=== PATIENT | female | born 1945 | race Caucasian/White ===

== ENCOUNTER 2024-05-27 13:23 | Outpatient (AMB) | payer MEDICARE, SELFPAY ==
[2024-05-27 13:38] VITALS: BP 112/73; PULSE 75; RESP 18; TEMP 35.8; O2SAT 98; BMI 20.9
--- NOTE | 2024-05-27 13:38 | ORTHONT_ITS ---
Vital signs 05/27/24 13:38 Height 1.57 m Height Method Stated Weight 51.766 kg Weight Measurement Method Standing Scale BMI 20.9 BP 112/73 Blood Pressure Source Automatic Cuff Blood Pressure Location Right Upper Arm Position Sitting Respiration 18 Pulse 75 Pulse Source Monitor Temp 96.4 F L Temp Source Temporal Artery Scan Pulse Oximetry (%) 98 Oxygen Delivery Method Room Air Med/Allergies Allergies & Medications Allergies No Known Allergies Allergy (Mild, Uncoded 05/27/24 13:39) NKA Medication Reconciliation No Known Home Medications 05/20/24 [History Confirmed 05/27/24] Subjective Visit Visit for: follow up visit and x-rays Immunization / Flu Flu Vaccine in the Last 12 Months: Yes Flu Vaccine Exclusion Criteria: Already Received History of Present Illness Chief complaint: F/U KNEE CYST Maria G is a pleasant 78-year-old female who presents today for evaluation of her right knee. She has a ganglion cyst on the anterior aspect of her knee. We drained the knee cyst approximately 3 days ago and the cyst is actually came back. We discussed that I did warn her that the there is a high risk of recurrence but we did not expect to come back this soon. Personal History Occupation: RETIRED Red flag PMH: none Pain Pain level (0-10): 0 Pain duration: NONE Pain location: inside (medial) Associated signs & symptoms: none Ambulatory data Ambulatory device: none Treatments Improvement with previous injections: No Improvement with PT: No Improvement with NSAIDS: no Review of Systems Review of Systems: All systems negative unless otherwise noted in HPI. Exam Exam Patient is in no acute distress and is cooperative with the examination today. Breathing is nonlabored. Patient has a normal mood and affect. The patient has a gait that is [nonantalgic] Bilateral extremities were evaluated and demonstrates sensation intact to light touch. Palpable pedal pulses are present. No significant edema is present. Bilateral hips were examined. The patient has no pain with log roll of the hips. Internal rotation to 30 degrees and external rotation to 30 degrees is painless. Negative FADIR. Left knee was examined today. The left knee is in reasonable alignment. Range of motion from 0-120 degrees. Knee is stable to varus and valgus as well as AP translation with <5mm. Patient has a negative McMurrays. There is no pain with patellofemoral compression and no crepitus noted. The knee is nontender to palpation. The right knee was also examined. The right knee is in [neutral] alignment. Range of motion from [0-120] degrees. Knee is stable to varus and valgus as well as AP translation with <5mm. Patient has a [negative] McMurrays. There is [no] pain with patellofemoral compression and [no] crepitus noted. The knee is [nontender] to palpation [diffusely]. There is a 2 x 2 cm cyst that is perfectly spherical. It feels like it is fluid-filled. It is on the inferior aspect of her patella X-rays demonstrate mild to moderate arthritis of the right knee. Assessment and Plan Problem List (1) Knee joint cyst, right: Status: Acute Plan: 78-year-old female with a right knee ganglion cyst on the anterior aspect of her knee. We discussed nonoperative treatment. We discussed we could try an aspiration with a cortisone injection. We made no promises and stated that this is not bad again. We also discussed that the comparison recurrence again with open treatment. An 18-gauge needle was used and we aspirated her cyst. 4 cc of fluid has been obtained monitor that was serosanguineous. We then inserted 5 cc of lidocaine and Kenalog mixture to 1 of 4-year-old show. The patient tolerated this well Advanced Care Planning Discussion Advance care planning discussed with:: patient Office Procedures GNS Level of Care Nursing/Assessment Patient Status: Established Patient Nursing Assessment/Reassesment: Medication Reconciliation, Update PMH in EMR and Vital Signs Coordination of Care: Complex Care and Chronic Disease 1-5, Education Complex Pt/Fam, Consent,records obtained, informed consent and Staff clarify orders Established Patient Charge Established Patient Point Assignment: 90 Established Patient Point Charge: EP Level 3 (80-115) Surgical Proc/IM SQ injection Major Surgical Procedure: Yes (KNEE INJECTION ) Medication Given Medication Given Medication Given: Yes Documented Dose Given: 4 Route: Infiitration Medication Given Medication Given Medication Given: Yes Documented Dose Given: 1 Route: Infiitration Office Meds Xylocaine 10 mg/mL (1 %) injection solution Performing Provider: Baltazar Barfield MD Performing Location: [facility] Administered by: Baltzaar Barfield MD on 05/27/24 14:25 Dose Route Admin Location Dispensed Lot Number Expiration Date [employer] Floor Press Operator 20 mL Infiltration 20 mL [id number] [employer] triamcinolone acetonide 40 mg/mL suspension for injection Performing Provider: Baltazar Barfield MD Performing Location: [facility] Administered by: Baltazar Barfield MD on 05/27/24 14:25 Dose Route Admin Location Dispensed Lot Number Expiration Date [facility] Floor Press Operator 40 mg intra-articular 1 mL [id number] [employer] Past Medical History Past Medical History Have you ever been diagnosed with any of the following: Respiratory Problems Smoking: No Smoking Cessation Counseling: No Smoking Exposure: No
== END 2024-05-27 14:08 | disposition home or self-care (01) ==
LOC: HODSRG 13:23
PROVIDERS: Supervising Provider Orthopaedic Surgery Adult Reconstructive Orthopaedic Surgery; Visit Provider Orthopaedic Surgery Adult Reconstructive Orthopaedic Surgery
DX: M67.461 Ganglion, right knee (principal)
CPT/HCPCS: 20610; 99213; J3301; J3490; G0463

== ENCOUNTER 2024-06-17 13:44 | Outpatient (AMB) | payer MEDICARE, SELFPAY ==
[2024-06-17 14:02] VITALS: BP 129/72; PULSE 72; RESP 18; TEMP 36.1; O2SAT 95; BMI 21.2
--- NOTE | 2024-06-17 14:02 | PD.ORTHCLVIS ---
Vital signs 06/17/24 14:02 Height 1.57 m Height Method Stated Weight 52.418 kg Weight Measurement Method Standing Scale BMI 21.2 BP 129/72 Blood Pressure Source Automatic Cuff Blood Pressure Location Right Upper Arm Position Sitting Respiration 18 Pulse 72 Pulse Source Monitor Temp 96.9 F Temp Source Temporal Artery Scan Pulse Oximetry (%) 95 Oxygen Delivery Method Room Air Med/Allergies Allergies & Medications Allergies No Known Allergies Allergy (Mild, Uncoded 06/17/24 14:03) NKA Medication Reconciliation No Known Home Medications 05/20/24 [History Confirmed 06/17/24] Subjective Visit Visit for: follow up visit Immunization / Flu Flu Vaccine in the Last 12 Months: No Flu Vaccine Exclusion Criteria: No Exclusion Criteria History of Present Illness Chief complaint: CYST REMOVAL Personal History Occupation: RETIRED [employer] PMH: none Pain Pain level (0-10): 3 Pain duration: CONSTANT Pain location: anterior Pain quality: dull and aching Ambulatory data Ambulatory device: none Treatments Improvement with previous injections: No Improvement with PT: No Improvement with NSAIDS: n/a Review of Systems Review of Systems: All systems negative unless otherwise noted in HPI. Assessment and Plan Advanced Care Planning Discussion Advance care planning discussed with:: patient Office Procedures GNS Level of Care Nursing/Assessment Patient Status: Established Patient Nursing Assessment/Reassesment: Medication Reconciliation, Update PMH in EMR and Vital Signs Coordination of Care: Complex Care and Chronic Disease 1-5, Education Complex Pt/Fam, Consent,records obtained, informed consent, 1 Ins Authorization, Results/Orders obtained and Staff clarify orders Established Patient Charge Established Patient Point Assignment: 110 Established Patient Point Charge: EP Level 3 (80-115) Past Medical History Past Medical History Have you ever been diagnosed with any of the following: Respiratory Problems Smoking: No Smoking Cessation Counseling: No Smoking Exposure: No
--- NOTE | 2024-06-17 14:08 | PD.ORTHCLVIS ---
Vital signs 06/17/24 14:02 Height 1.57 m Height Method Stated Weight 52.418 kg Weight Measurement Method Standing Scale BMI 21.2 BP 129/72 Blood Pressure Source Automatic Cuff Blood Pressure Location Right Upper Arm Position Sitting Respiration 18 Pulse 72 Pulse Source Monitor Temp 96.9 F Temp Source Temporal Artery Scan Pulse Oximetry (%) 95 Oxygen Delivery Method Room Air Med/Allergies Allergies & Medications Allergies No Known Allergies Allergy (Mild, Uncoded 06/17/24 14:03) NKA Medication Reconciliation No Known Home Medications 05/20/24 [History Confirmed 06/17/24] Subjective Visit Visit for: follow up visit Immunization / Flu Flu Vaccine in the Last 12 Months: No Flu Vaccine Exclusion Criteria: No Exclusion Criteria History of Present Illness Chief complaint: CYST REMOVAL Patient is a pleasant 78-year-old female with a right knee ganglion cyst on the anterior aspect of her knee. We have aspirated previously and it recurred. We did let her know advanced this is a high recurrence rate with aspiration even a high recurrence rate surgically. She reports that it is painful and that it is a nuisance. She hates when he her long pants rub on it. She would like to get this removed. Personal History Occupation: RETIRED Red flag PMH: none Pain Pain level (0-10): 3 Pain duration: CONSTANT Pain location: anterior Pain quality: dull and aching Ambulatory data Ambulatory device: none Treatments Improvement with previous injections: No Improvement with PT: No Improvement with NSAIDS: n/a Review of Systems Review of Systems: All systems negative unless otherwise noted in HPI. Exam Exam Patient is in no acute distress and is cooperative with the examination today. Breathing is nonlabored. Patient has a normal mood and affect. The patient has a gait that is [nonantalgic] Bilateral extremities were evaluated and demonstrates sensation intact to light touch. Palpable pedal pulses are present. No significant edema is present. Bilateral hips were examined. The patient has no pain with log roll of the hips. Internal rotation to 30 degrees and external rotation to 30 degrees is painless. Negative FADIR. Left knee was examined today. The left knee is in reasonable alignment. Range of motion from 0-120 degrees. Knee is stable to varus and valgus as well as AP translation with <5mm. Patient has a negative McMurrays. There is no pain with patellofemoral compression and no crepitus noted. The knee is nontender to palpation. The right knee was also examined. The right knee is in [neutral] alignment. Range of motion from [0-120] degrees. Knee is stable to varus and valgus as well as AP translation with <5mm. Patient has a [negative] McMurrays. There is [no] pain with patellofemoral compression and [no] crepitus noted. The knee is [nontender] to palpation [diffusely]. There is a 2 x 2 cm cyst that is perfectly spherical. It feels like it is fluid-filled. It is on the inferior aspect of her patella X-rays demonstrate mild to moderate arthritis of the right knee. Assessment and Plan Problem List (1) Knee joint cyst, right: Status: Acute Plan: Patient is a 78-year-old female with a very large 3 x 3 cm cyst over the right knee. It is superficial. We have aspirated previously and it was gelatinous. This was consistent with a synovial cyst. We have aspirated and is reoccurred. I discussed with the patient that this has a high recurrence rate with both aspiration and surgery. The pain is affecting her quality life and she understands that there Is as high as a 40% recurrence rate. I discussed that the risks of the procedure include infection, and most commonly recurrence of the lesion. She would like to proceed with surgery despite these risks given that is very difficult for her to wear long pants. Plan We will plan for surgical removal. We Will send it for pathology as well. We were very clear with the patient that this has a high recurrence rate. Advanced Care Planning Discussion Advance care planning discussed with:: patient Office Procedures GNS Level of Care Nursing/Assessment Patient Status: Established Patient Nursing Assessment/Reassesment: Medication Reconciliation, Update PMH in EMR and Vital Signs Coordination of Care: Complex Care and Chronic Disease 1-5, Education Complex Pt/Fam, Consent,records obtained, informed consent, 1 Ins Authorization, Results/Orders obtained and Staff clarify orders Established Patient Charge Established Patient Point Assignment: 110 Established Patient Point Charge: EP Level 3 (80-115) Past Medical History Past Medical History Have you ever been diagnosed with any of the following: Respiratory Problems Smoking: No Smoking Cessation Counseling: No Smoking Exposure: No
[2024-06-17 14:11] VITALS: BP 129/72; PULSE 72; RESP 18; TEMP 36.1; O2SAT 95
== END 2024-06-17 14:19 | disposition home or self-care (01) ==
LOC: HODSRG 13:44
PROVIDERS: PCP Family Medicine; Referring Provider Family Medicine; Supervising Provider Orthopaedic Surgery Adult Reconstructive Orthopaedic Surgery; Visit Provider Orthopaedic Surgery Adult Reconstructive Orthopaedic Surgery
DX: M25.861 Other specified joint disorders, right knee (principal)
CPT/HCPCS: 99213; G0463

== ENCOUNTER 2024-07-09 08:30 | Day surgery (SDC) | payer MEDICARE, SELFPAY ==
--- NOTE | 2024-07-08 09:00 | EKG_ITS ---
[facility] Test Date: 2024-07-08 Pat Name: RAY CANTU Department: Room: - Gender: Female It Applications Developer: CRISS : [id number] Requested By: Arthur Cheek Order Number: [id number] Reading MD: Arthur Cheek Measurements Intervals [place] Rate: 64 P: 64 MD: 154 QRS: -25 QRSD: 86 T: 38 QT: 383 QTc: 398 Interpretive Statements SINUS RHYTHM BORDERLINE LEFT AXIS DEVIATION POSSIBLE RIGHT VENTRICULAR CONDUCTION DELAY MINIMAL VOLTAGE CRITERIA FOR LVH, CONSIDER NORMAL VARIANT No previous ECG available for comparison /[id number]/[id number]
[2024-07-08 09:31] VITALS: BMI 21.4
[2024-07-08 10:26] LABS: Basophils % (Auto) 1 % (0-2.5); Eosinophils # (Auto) 0.2 Thou/mm3 (0.0-0.5); Eosinophils % (Auto) 3 % (0-10); Hematocrit 40.7 % (36.0-46.0); Immature Granulocytes % (Auto) 0 % (0-0); Immature Granulocytes Auto 0.01 Thou/mm3 (0.00-0.00); Lymphocytes # (Auto) 1.6 Thou/mm3 (1.0-4.8); Lymphocytes % (Auto) 27 % (10-50); Mean Corpuscular HGB Conc 31.9 g/dl (31.0-37.0); Mean Corpuscular Hemoglobin 28.8 pg (25.0-35.0); Mean Corpuscular Volume 90 fL (80-100); Monocytes # (Auto) 0.6 Thou/mm3 (0.0-0.8); Monocytes % (Auto) 9 % (0-12); Neutrophils # (Auto) 3.8 Thou/mm3 (1.8-7.7); Neutrophils % (Auto) 61 % (37-80); Nucleated Red Blood Cell % 0 /100 WBC (0); Platelet Count 199 Thou/mm3 (140-440); Red Blood Count 4.52 Miln/mm3 (4.00-5.20); White Blood Count 6.2 Thou/mm3 (3.6-11.0)
[2024-07-08 10:28] LABS: Partial Thromboplastin Time 25.1 Seconds (22.0-36.0); Prothrombin Time 10.5 Seconds (9.0-12.2)
[2024-07-08 10:40] LABS: Alanine Aminotransferase 15 U/L (10-49); Albumin, Serum 4.6 gm/dL (3.4-4.8); Albumin/Globulin Ratio 2.2 (1.2-2.2); Alkaline Phosphatase 83 U/L (46-116); Anion Gap 6 (7-16); BUN/Creatinine Ratio 16 Ratio (12-20); Bilirubin,Total 0.4 mg/dL (0.3-1.2); Blood Urea Nitrogen 14 mg/dL (9-23); Calcium 9.7 mg/dL (8.3-10.6); Calcium (Corrected) 9.7 mg/dL (8.5-10.1); Carbon Dioxide 29.7 mMol/L (20.0-31.0); Chloride 105 mMol/L (98-107); Creatinine (Component) 0.9 mg/dL (0.6-1.3); Estimated Creatinine Clearance 41.4 mL/min (>60); Globulin 2.1 gm/dL (2.3-3.5); Glucose 77 mg/dL (74-106); Osmolality,Calculated 280 (275-295); Potassium 4.4 mMol/L (3.4-5.1); Sodium 141 mMol/L (136-145); Total Protein 6.7 gm/dL (5.7-8.2); eGFR > 60 See Note
[2024-07-08 11:14] LABS: Aspartate Amino Transferase 21 U/L (0-34)
[2024-07-09] VITALS (8 sets, daily range): BP systolic 108–137; BP diastolic 60–72; PULSE 60–66; RESP 12–25; TEMP 36.3–36.7; O2SAT 96–99; BMI 21.4
[2024-07-09] MEDS: ACETAMINOPHEN 325 MG TABLET 650 MG PO (10:36)
--- NOTE | 2024-07-09 13:56 | PD.SUROPNT ---
Date of Procedure 07/09/24 Pre Op Diagnosis Right anterior knee mass Post Op Diagnosis Right knee ganglion Procedure Right knee ganglion mass removal Findings 2 x 2 cm ganglion cyst that is encapsulated Procedure Description Indications: Patient is a 78-year-old female with persistent knee pain and discomfort with anterior knee mass. We previously aspirated and aspirated gelatinous substance. It has reoccurred several times and we thus discussed removal. A sideways consent was placed in the chart. The patient understands that the base risk include infection as well as recurrence of the mass Procedure in detail: The patient was prepped and draped in the usual sterile fashion. A tourniquet was used and inflated. A 3 cm incision was made over the mass. We dissected around the anterior knee mass that appeared gelatinous. We did not puncture it was able to remove it in 1 piece using dissecting scissors and a Bovie. We sent the specimen for pathology. We found a 2 x 2 x 1 cm mass that appeared to look like a gelatinous cyst. It was mobile and superficial to the patella. The patient was subsequently closed with 0 Vicryl, 2-0 Vicryl, and Monocryl. We achieved hemostasis prior to closing. A sterile dressing was then applied Anesthesia MAC Pathology / specimen None Pathology comment: right knee mass Estimated Blood Loss 150 Condition Stable Disposition same day Surgeon Baltazar Barfield MD Surgical Staff Operation Date: 07/09/24 13:45 <No data on this case meets the specified criteria>
--- NOTE | 2024-07-09 13:58 | SUR.PHASEI ---
pt received from OR in recovery bay 4. pt awake and alert, breathing unlabored on room air. v/s stable. pt dressing to right lower extremity cdi. report received from Dr. Cheek and Yary ROSAS.
--- NOTE | 2024-07-09 14:25 | SUR.PHASEI ---
pt able to tolerate oral fluids without difficulty swallowing or nausea/vomiting.
--- NOTE | 2024-07-09 15:30 | SUR.PHASEII ---
pt awake and alert, breathing unlabored on room air. v/s stable. pt dressing to right knee cdi. pt able to ambulate to wheelchair with steady gait. d/c instructions given with Elan in room, all question answered. pt d/c via wheelchair with all belongings.
== END 2024-07-09 15:30 | disposition home or self-care (01) ==
PROVIDERS: Anesthesiology; PCP Family Medicine; Referring Provider Orthopaedic Surgery Adult Reconstructive Orthopaedic Surgery; Visit Provider Orthopaedic Surgery Adult Reconstructive Orthopaedic Surgery
PROC: (CPT 27345; principal; 2024-07-09 13:30)
DX: M67.461 Ganglion, right knee (principal); Z01.810 Encounter for preprocedural cardiovascular examination
CPT/HCPCS: 27345; 36415; 80048; 80053; 85025; 85610; 85730; 93005; A4649; J0690; J2250; J2405; J2704; J3010; J3490; A9270

== ENCOUNTER 2024-07-22 09:00 | Outpatient (AMB) | payer MEDICARE, SELFPAY ==
[2024-07-22 09:23] VITALS: BP 146/82; PULSE 66; RESP 18; TEMP 36.3; O2SAT 98; BMI 21.5
--- NOTE | 2024-07-22 09:23 | PD.ORTHCLVIS ---
Vital signs 07/22/24 09:23 Height 1.57 m Height Method Stated Weight 53.184 kg Weight Measurement Method Standing Scale BMI 21.5 BP 146/82 H Blood Pressure Source Automatic Cuff Blood Pressure Location Right Upper Arm Position Sitting Respiration 18 Pulse 66 Pulse Source Monitor Temp 97.4 F Temp Source Temporal Artery Scan Pulse Oximetry (%) 98 Oxygen Delivery Method Room Air Med/Allergies Allergies & Medications Allergies No Known Allergies Allergy (Verified 07/22/24 09:27) Medication Reconciliation hydrocodone 5 mg-acetaminophen 325 mg tablet 1 tab PO Q6H PRN pain #10 tabs 07/09/24 [Rx Confirmed 07/22/24] Exam Exam Patient is in no acute distress and is cooperative with the examination today. Breathing is nonlabored. In no respiratory distress. Bilateral extremities were evaluated and demonstrates sensation intact to light touch. Palpable pedal pulses are present. No significant edema is present. Bilateral hips were examined. The patient has no pain with log roll of the hips. Internal rotation to 30 degrees and external rotation to 30 degrees is painless. Negative FADIR. Left knee was examined today. The right knee is in reasonable alignment. Range of motion from 0-120 degrees. Knee is stable to varus and valgus as well as AP translation with <5mm. Patient has a negative McMurrays. There is no pain with patellofemoral compression and no crepitus noted. The knee is nontender to palpation. Right knee incision is clean dry and intact. Incision is clean and there is no mass currently Assessment and Plan Problem List (1) Knee joint cyst, right: Status: Acute Plan: Patient is a 71-year-old female status post right knee cyst removal. She is very happy with how it looks. She is doing well. He reports that she can see us as an as-needed basis is a looks great Advanced Care Planning Discussion Advance care planning discussed with:: patient Office Procedures GNS Level of Care Nursing/Assessment Patient Status: Established Patient Nursing Assessment/Reassesment: Medication Reconciliation, Orthostatic Vitals and Vital Signs Coordination of Care: Complex Care and Chronic Disease 1-5, Education Complex Pt/Fam, Consent,records obtained, informed consent, Results/Orders obtained and [facility] Established Patient Charge Established Patient Point Assignment: 95 Established Patient Point Charge: EP Level 3 (80-115) MA Intake Visit Data Collection New Patient or Established: Established Patient (seen at [facility] within 3 years) Reason for Visit:: Follow up Sx Reimbursement Auditor Required: No PCP or OBGYN visit in last 3 months: Yes Hx Now: No Do You Feel Safe at Home: Yes Authorities Contacted: N/A Questionairres Past Medical History Past Medical History Have you ever been diagnosed with any of the following: Neurological Problems Seizures: No Cardiology Problems Congestive Heart Failure: No Respiratory Problems Chronic Obstructive Pulmonary Disease (COPD): No Smoking: No Smoking Cessation Counseling: No Smoking Exposure: No Stomache/Intestinal Problems Hepatitis: No Genital/Urinary Problems Renal Disease: No Reproductive Problems Previous Pregnancies: Yes (X2) Endocrine Problems Diabetes Mellitus Type 1: No Diabetes Mellitus Type 2: No Other Problems Falls: No Blood Transfusions: No Blood Transfusion Reaction: No Anesthesia Reactions: No Chicken Pox: Yes Measles: Yes Mumps: Yes Cancer: No Subjective Visit Visit for: follow up visit and knee Immunization / Flu Flu Vaccine in the Last 12 Months: Yes Flu Vaccine Exclusion Criteria: No Exclusion Criteria and Already Received History of Present Illness Chief complaint: F/U on sx Maria G is a pleasant 79-year-old female who is 2 weeks status post right knee cyst removal. It went without complication and she is doing well. She has minimal pain Pain Pain level (0-10): 0 Ambulatory data Ambulatory device: none Treatments Improvement with previous injections: No Improvement with PT: No Improvement with NSAIDS: n/a Review of Systems Review of Systems: All systems negative unless otherwise noted in HPI.
== END 2024-07-22 09:50 | disposition home or self-care (01) ==
LOC: HODSRG 09:00
PROVIDERS: Supervising Provider Orthopaedic Surgery Adult Reconstructive Orthopaedic Surgery; Visit Provider Orthopaedic Surgery Adult Reconstructive Orthopaedic Surgery
DX: Z48.817 Encounter for surgical aftercare following surgery on the skin and subcutaneous tissue (principal)
CPT/HCPCS: 99213; G0463